=== PATIENT | female | born 1960 | race Caucasian/White ===

== ENCOUNTER → 2019-04-08 | Outpatient (CLI) | payer BC, OTHER ==
--- NOTE | 2019-04-14 22:37 | PFR/MVV ---
[facility] [place] [address] PULMONARY FUNCTION MVV/REPORT Name: MARCIA ROMERO Room #: [facility].#: [id number] Admission: 04/08/19 Attend Phys: Ender Persaud MD Discharge: Date of : 58 Report #: [id number] THIS REPORT FOR: //name// >> SPIROMETRY: (BTPS) Height: 65 in cm Weight: 113 lbs kg Exam Date: 04/08/19 PRE-RX POST-RX PRED BEST %PRED BEST %PRED %CHG FVC LITERS . 3.18 . 3.34 . 105 . 3.25 . 102 . -3 FEV1 LITERS . 2.35 . 2.83 . 120 . 2.92 . 124 . 3 FEV1/FVC % . 73 . 85 . 116 . 90 . 122 . 6 SEN88-21% L/Sec . 2.65 . 2.37 . 108 . 3.75 . 141 . 31 PEF L/SEC . 5.85 . 6.83 . 117 . 5.84 . 100 . -14 FEF50/FIF50 UNITLESS . <1.00 . 2.06 . . 1.63 . . -21 MVV L/Min . 92 . 55 . 60 f 1/Min . . 175 . >> LUNG VOLUMES: (BTPS) PRE-RX POST-RX PRED AVG %PRED AVG %PRED %CHG VC Liters . 3.18 . 3.34 . 105 . . . TLC Liters . 5.10 . 5.34 . 105 . . . RV Liters . 1.92 . 2.01 . 104 . . . RV/TLC % . 38 . 38 . 100 . . . FRC PL Liters . 3.16 . 2.56 . 81 . . . FRC N2 Liters . 3.16 . . . . . ERV Liters . 1.06 . 0.55 . 52 . . . IC Liters . 2.12 . 2.32 . 109 . . . >> DIFFUSION: DLCO ml/Min/mmHg . 17.5 . 18.6 . 106 . . . DL Cecily ml/Min/mmHg . 17.5 . 18.6 . 106 . . . DLCO/VA ml/Min/mmHg . 3.78 . 4.59 . 121 . . . VA Liters . . 4.06 . . . . COMMENTS: COMMENTS: >> RESISTANCE: [facility] [address] [place] [address] PULMONARY FUNCTION MVV/REPORT Name: MARCIA ROMERO Room #: [facility].#: [id number] Admission: 04/08/19 Attend Phys: Ender Persaud MD Discharge: Date of : 58 Report #: [id number] PRE-RX PRED AVG %PRED Raw Total cmH20/L/Sec . . 5.22 . Raw Insp cmH20/L/Sec . . 0.94 . Raw Exp cmH20/L/Sec . . 2.52 . Raw cmH20/L/Sec . 1.19 . 1.77 . 148 Gaw L/Sec/cmH20 . 0.759 . 0.565 . 74 sRaw cmH20 Sec . 3.77 . 4.17 . 111 sGaw l/cmH20 Sec . 0.265 . 0.240 . 90 Vtq Liters . . 2.36 . # = OUTSIDE 95% CONFIDENCE INTERVAL CALIBRATION: PRED: 3.00 ACTUAL: EXP 3.01 INSP 3.02 [facility]-OL10-06 [facility]-05 N-[id number] >> INTERPRETATION/IMPRESSION: CC: Ender Persaud DATE OF SERVICE: 04/13/2019 PULMONARY FUNCTION: FEV1 is 2.83 liters (120%), FVC is 3.34 liters (105%), FEV1/FVC ratio is 85%. Post-bronchodilator therapy with no significant change. LUNG VOLUMES: Total lung capacity is 5.34 liters (105%). RV is 2.01 liters (104%). Diffusing capacity is 106%. IMPRESSION: Studies are suggestive of normal pulmonary function. <ELECTRONICALLY SIGNED> By: Demetri Hook MD 04/14/19 2237 Demetri Hook MD /nt
== END ==
LOC: PUL 10:00
DX: M34.89 Other systemic sclerosis (principal); R06.02 Shortness of breath